=== PATIENT | male | born 1950 | race Caucasian/White ===

== ENCOUNTER → 2023-06-17 | Outpatient (CLI) | payer MEDICARE, OTHER ==
--- NOTE | 2023-06-17 09:17 | MR ---
EXAMINATION TYPE: MR Prostate wo/w con DATE OF EXAM: 06/17/2023 8:24 AM COMPARISON: None. CLINICAL INDICATION:Male, 72 years old with history of R97.20 elevated psa; Elevated PSA. TECHNIQUE: Multi-planar, multi-sequence imaging of the pelvis is performed prior to and following the uncomplicated administration of bolus intravenous gadolinium. CONTRAST: 8 Gadavist Interpretive Criteria: PI-RADS v2.1 SERUM PSA: 8.17 on 04/28/2023. 6.86 on 10/15/2022. SURGICAL PATHOLOGY: No data available. FINDINGS: Prostatic dimensions: 5.2 x 4.7 x 3.8 cm. "Bullet" Volume:60.78 (PSA density=0.13 ng/mL/mL) CENTRAL GLAND (Central and Transition Zones/CZ+TZ): Right central mid gland 11 x6 mm focus of high DWI/low ADC low T2 signal. On the This area may cross midline into the left central gland mid gland (PI-RADS 2) PERIPHERAL ZONE (PZ): Right lateral mid gland high DWI/low ADC/low T2 signal lesion measuring 15 x 11 mm along the capsule of the peripheral zone. . (PI-RADS 5) SEMINAL VESICLES (SV): Symmetric and unremarkable. PERIPROSTATIC TISSUES: Unremarkable. LYMPH NODES: No enlarged pelvic lymph node. REMAINING PELVIS: Bladder wall is within normal limits given distention. No abnormal free or organized intrapelvic fluid collection. No pathologic bowel dilation or mural thickening. Bilateral fat containing inguinal hernias. OSSEOUS STRUCTURES: No suspicious osseous abnormality. IMPRESSION: 1. PI-RADS 5 lesion along the right lateral peripheral zone of the mid gland measuring 15 x 11 mm. (PI-RADS 5) 2. PI-RADS 4 lesion along the right central mid gland measuring up to 11 x 9 mm (PI-RADS 4) 3. Moderate BPH, estimated gland volume 60.78 mL. 4. No suspicious osseous lesion. No lymphadenopathy. No evidence of prostate adenocarcinoma involvin g the periprostatic tissues.
== END | disposition home or self-care (01) ==
LOC: RADMRIMAIN 07:18
PROVIDERS: ATTEND Urology
DX: N40.0 Benign prostatic hyperplasia without lower urinary tract symptoms (principal); N42.89 Other specified disorders of prostate; R97.20 Elevated prostate specific antigen [PSA]
CPT/HCPCS: 72197; A9585

== ENCOUNTER → 2023-07-09 | Outpatient (CLI) | payer MEDICARE ==
[2023-07-09 15:15] LABS: BUN/Creat Ratio 19.56 Ratio (12.00-20.00); Blood Urea Nitrogen 17.6 mg/dL (9.0-27.0); Carbon Dioxide 23.8 mmol/L (21.6-31.8); Chloride 104 mmol/L (96-109); Glucose 92 mg/dL (70-110); Potassium 4.6 mmol/L (3.5-5.5); Sodium 140 mmol/L (135-145)
[2023-07-09 15:35] LABS: Basophils # (A) 0.08 X 10*3/uL (0.00-0.10); Basophils % (A) 1.1 %; Eosinophils # (A) 0.69 X 10*3/uL (0.04-0.35); Eosinophils % (A) 9.6 %; HCT 47.6 % (39.6-50.0); HGB 15.5 g/dL (13.0-17.0); Lymphocytes # (A) 1.45 X 10*3/uL (0.90-5.00); Lymphocytes % (A) 20.2 %; MCH 29.9 pg (27.0-32.0); MCHC 32.6 g/dL (32.0-37.0); MCV 91.9 FL (80.0-97.0); Mean Platelet Volume 10.5 FL (9.5-12.2); Monocytes # (A) 0.81 X 10*3/uL (0.20-1.00); Monocytes % (A) 11.3 %; NRBC Per 100 WBC 0 X 10*3/uL (0.00-0.01); Neutrophils # (A) 4.11 X 10*3/uL (1.80-7.70); Neutrophils % (A) 57.4 %; Platelet Count 201 X 10*3/uL (140-440); RBC 5.18 X 10*6/uL (4.40-5.60); RDW 12.7 % (11.5-14.5); WBC 7.17 X 10*3/uL (4.50-10.00)
== END | disposition home or self-care (01) ==
LOC: LABPAT 09:22
PROVIDERS: ATTEND Urology
DX: Z01.812 Encounter for preprocedural laboratory examination (principal); C61 Malignant neoplasm of prostate
CPT/HCPCS: 36415; 80048; 85025

== ENCOUNTER 2023-07-17 10:08 | Day surgery (SDC) | payer MEDICARE, OTHER ==
[2023-07-10 12:38] VITALS: BMI 27.3
--- NOTE | 2023-07-14 04:03 | P.GSHP ---
History of Present Illness H&P Date: 07/14/23 Chief Complaint: Prostate cancer The patient is a 72-year-old white male diagnosed with adenocarcinoma of the prostate in May 2022. His PSA level at that time was 6.71, and biopsies showed [place] 6 adenocarcinoma. He has a right-sided prostate nodule which is unchanged. Recent MRI shows a PI-RADS 5 lesion within the right lateral peripheral zone and a PI-RADS 4 lesion in the right central mid gland. - Cardiovascular Cardiovascular: Reports high blood pressure - Genitourinary (Male) Genitourinary: Reports nocturia Past Medical History Past Medical History: Coronary Artery Disease (CAD), Cancer, Hyperlipidemia, Hypertension Additional Past Medical History / Comment(s): hx gi bleed due to enlarged "vessels in large intestine" caused by motrin., aneurysm behind right knee., elevated PSA., prostate cancer History of Any Multi-Drug Resistant Organisms: None Reported Past Surgical History: Heart Catheterization With Stent Additional Past Surgical History / Comment(s): total left knee , reconstruction left shoulder, "double abd hernia", heart cath with 2 stents (07/30/2014) Past Anesthesia/Blood Transfusion Reactions: No Reported Reaction Date of Last Stent Placement:: 07/30/2014 Past Psychological History: No Psychological Hx Reported Smoking Status: Current some day smoker Past Alcohol Use History: None Reported Additional Past Alcohol Use History / Comment(s): currently has occasional cigar, quit cigarettes 40 years ago, hx of up to 2 ppd., Past Drug Use History: None Reported - Past Family History Mother Family Medical History: No Reported History Medications and Allergies Home Medications Medication Instructions Recorded Confirmed Type Antibiotic (Unknown Name) 2 tab PO DIRECTED 07/10/23 History Ascorbic Acid [Vitamin C] 1,000 mg PO DAILY 07/10/23 07/10/23 History Aspirin [Adult Low Dose Aspirin EC] 81 mg PO DAILY 07/10/23 07/10/23 History Evolocumab [Repatha Syringe] 140 mg SQ Q14D 07/10/23 07/10/23 History Metoprolol Succinate [Toprol XL] 50 mg PO HS 07/10/23 07/10/23 History Mv-Min/Folic/K1/Lycopen/Lutein 1 each PO DAILY 07/10/23 07/10/23 History [Centrum Silver Men Tablet] Omeprazole [PriLOSEC] 20 mg PO AC-BRKFST 07/10/23 07/10/23 History Vitamin B Complex 1 each PO DAILY 07/10/23 07/10/23 History lisinopriL [Zestril] 10 mg PO DAILY 07/10/23 07/10/23 History Allergies Allergy/AdvReac Type Severity Reaction Status Date / Time Sulfa (Sulfonamide Allergy Unknown Unknown Verified 07/10/23 12:13 Antibiotics) Childhood clopidogrel [From Plavix] AdvReac Severe Rash/Hives Verified 07/10/23 12:13 [id number] Reductase AdvReac Severe Rash/Hives Verified 07/10/23 12:13 Inhibitor ibuprofen [From Motrin] AdvReac Unknown caused Verified 07/10/23 12:18 enlarged vessels large intestine with bleeding Surgical - Exam - General well developed, well nourished, no distress - Respiratory normal respiratory effort - Abdomen Abdomen: soft, non tender, no guarding, no rigid, no rebound - Genitourinary normal penis with no external lesions, testicles non-tender - Rectum Rectum: normal sphincter tone, no masses, other (Right-sided prostate nodule) - Psychiatric oriented to time, oriented to person, oriented to place, speech is normal, memory intact Assessment and Plan (1) Malignant neoplasm of prostate Status: Acute Code(s): C61 - MALIGNANT NEOPLASM OF PROSTATE SNOMED Code(s): 557635010 Plan: The patient will undergo MRI-Ultrasound fusion transrectal biopsies of the prostate. The procedure has been reviewed in detail with the patient. He has been made aware of potential risks, which include anesthesia, bleeding, and infection. He is also aware that a negative biopsy does not completely rule out prostate cancer.
[~2023-07-17 10:08] MED LIST: DEXAMETHASONE SOD PHOSPHATE 4 MG/ML 1 ML VIAL IV ONE; GENTAMICIN 40 MG/ML 2 ML VIAL IM PRN; HYDROmorphone 0.5 MG/0.5 ML SYRINGE IVP PRN; LACTATED RINGERS 1,000 ML IV SCH; MIDAZOLAM 2 MG/2 ML VIAL IV PRN; ONDANSETRON 4 MG/2 ML VIAL IVP ONE
[2023-07-17 10:53] VITALS: TEMP 98.2
[2023-07-17] MEDS ORDERED: PROPOFOL 10 MG/ML 20 ML VIAL IV ONE (13:18)
[2023-07-17] MEDS ORDERED: fentaNYL (PF) 50 MCG/ML 2 ML AMP ONE (13:18)
--- NOTE | 2023-07-17 13:42 | P.OP ---
Date of Procedure: 07/17/23 Preoperative Diagnosis: Adenocarcinoma of the prostate Postoperative Diagnosis: Same Procedure(s) Performed: MRI ultrasound-guided fusion biopsies of the prostate Anesthesia: MAC Surgeon: Isidro Martinez Estimated Blood Loss (ml): 5 IV fluids (ml): 200 Indications for Procedure: The patient is a 72-year-old white male diagnosed with adenocarcinoma of the prostate in May 2022. His PSA level at that time was 6.71, and biopsies showed [place] 6 adenocarcinoma. He has a right-sided prostate nodule which is unchanged. Recent MRI shows a PI-RADS 5 lesion within the right lateral peripheral zone and a PI-RADS 4 lesion in the right central mid gland. Operative Findings: Biopsies sent from right peripheral zone target lesion as well as template biopsies. Description of Procedure: The patient was taken to the operating room and placed in the left lateral decubitus position. TOMMY revealed the prostate to be mildly enlarged but smooth. The [employer] transrectal ultrasound probe was placed intrarectally. It was then placed within the stand of the [employer] MRI/TRUS Fusion for Prostate Biopsy system. The prostate was imaged in both the axial and sagittal planes, revealing a prostate volume of 39 mL. Using the Biopty gun, 3 biopsies were obtained from the target lesion within the right mid peripheral zone. The remaining 12 biopsies of the peripheral zone were obtained utilizing a standard template. Once the procedure was completed, the ultrasound probe was removed. The patient tolerated the procedure well was taken to the recovery room stable condition.
[2023-07-17 13:52] VITALS: PULSE 84; RESP 16
[2023-07-17 14:18] VITALS: BP 129/82
== END 2023-07-17 14:27 | disposition home or self-care (01) ==
LOC: OR 10:08
PROVIDERS: ATTEND Urology
DX: C61 Malignant neoplasm of prostate (principal); I25.10 Atherosclerotic heart disease of native coronary artery without angina pectoris; E78.5 Hyperlipidemia, unspecified; I10 Essential (primary) hypertension; K92.2 Gastrointestinal hemorrhage, unspecified; F17.210 Nicotine dependence, cigarettes, uncomplicated; Z79.82 Long term (current) use of aspirin; Z79.2 Long term (current) use of antibiotics; Z79.899 Other long term (current) drug therapy; Z88.2 Allergy status to sulfonamides; Z88.1 Allergy status to other antibiotic agents; Z88.6 Allergy status to analgesic agent; Z88.8 Allergy status to other drugs, medicaments and biological substances; Z85.46 Personal history of malignant neoplasm of prostate; Z96.652 Presence of left artificial knee joint
CPT/HCPCS: 55700; 76942; 88305; J1580; J1100; J2405; J3010; J2704

== ENCOUNTER → 2023-08-22 | Outpatient (CLI) | payer MEDICARE, OTHER ==
[2023-08-22 16:00] LABS: Basophils # (A) 0.09 X 10*3/uL (0.00-0.10); Eosinophils # (A) 0.54 X 10*3/uL (0.04-0.35); Eosinophils % (A) 5.9 %; HCT 43.2 % (39.6-50.0); HGB 14.3 g/dL (13.0-17.0); Lymphocytes # (A) 1.82 X 10*3/uL (0.90-5.00); MCH 29.5 pg (27.0-32.0); MCHC 33.1 g/dL (32.0-37.0); MCV 89.1 FL (80.0-97.0); Mean Platelet Volume 10.5 FL (9.5-12.2); Monocytes # (A) 0.79 X 10*3/uL (0.20-1.00); Monocytes % (A) 8.7 %; NRBC Per 100 WBC 0 X 10*3/uL (0.00-0.01); Neutrophils % (A) 63.7 %; Platelet Count 195 X 10*3/uL (140-440); RBC 4.85 X 10*6/uL (4.40-5.60); RDW 12.9 % (11.5-14.5)
[2023-08-22 18:26] LABS: BUN/Creat Ratio 19.11 Ratio (12.00-20.00); Blood Urea Nitrogen 17.2 mg/dL (9.0-27.0); Calcium 10.4 mg/dL (8.7-10.3); Carbon Dioxide 23.2 mmol/L (21.6-31.8); Chloride 104 mmol/L (96-109); Glucose 109 mg/dL (70-110); Potassium 4.4 mmol/L (3.5-5.5); Sodium 139 mmol/L (135-145)
[2023-08-22 18:31] LABS: Appearance,Urine Clear (Clear); Bilirubin,Urine Negative (Negative); Blood,Urine Negative (Negative); Color,Urine Yellow (Yellow); Ketones,Urine Negative (Negative); Nitrite,Urine Negative (Negative); Specific Gravity,Urine 1.011 (1.001-1.030); Urobilinogen,Urine 0.2 E.U./DL
[2023-08-22 18:38] LABS: Bacteria,Urine None Seen (None Seen)
== END | disposition home or self-care (01) ==
LOC: LABPAT 13:13
PROVIDERS: ATTEND Urology
DX: Z01.818 Encounter for other preprocedural examination (principal); C61 Malignant neoplasm of prostate
CPT/HCPCS: 36415; 80048; 81001; 85025; 86850; 86900; 86901; 87086; 93005

== ENCOUNTER 2023-08-28 09:12 | Day surgery (SDC) | payer MEDICARE, OTHER ==
[2023-08-25 11:27] VITALS: BMI 27.6
[2023-08-28] MEDS: LACTATED RINGERS 1,000 ML IV SCH (09:39)
[2023-08-28] MEDS: DEXAMETHASONE SOD PHOSPHATE 4 MG/ML 1 ML VIAL IV ONE (10:03)
[2023-08-28] MEDS: ONDANSETRON 4 MG/2 ML VIAL IVP ONE (10:03)
[2023-08-28] MEDS: MIDAZOLAM 2 MG/2 ML VIAL IVP ONE (10:18)
[2023-08-28] MEDS: HEPARIN SODIUM,PORCINE 5,000 UNIT/ML 1 ML VIAL SQ PRN (10:32)
--- NOTE | 2023-08-28 10:35 | P.ANPRN ---
Procedure Note - Anesthesia - Nerve Block Performed Bilateral Erector Spinae Single Time Out Performed: Yes Date of Procedure: 08/28/23 Procedure Start Time: 10:18 Procedure Stop Time: : Location of Patient: PreOp Indication: Acute Post-Operative Pain, Analgesia, Requested by Surgeon Sedation Type: Sedate with meaningful contact maintained Preparation: Sterile Prep Position: Prone Catheter: None Needle Types: Pajunk Needle Gauge: 21 Ultrasound used to visualize needle placement: Yes Ultrasound used to observe medication spread: Yes Injectate: 0.5% Ropivacaine (see comment for volume) (Ropiv 20ml+4mg decadron-- On each side) Narrative: Block done at L1 level bilaterally Blood Aspirated: No Pain Paresthesia on Injection Noted: No Resistance on Injection: Normal Image Stored and Saved: Yes Events: Uneventful and Well Tolerated
--- NOTE | 2023-08-28 11:06 | P.HPIHPCON ---
History of Present Illness H&P Date: 08/28/23 Chief Complaint: Prostate cancer This is a 73-year-old male with history of [place] 7(4+3)prostate cancer. Option of a robotic radical prostatectomy, versus radiation therapy was discussed with him in details. He agreed to proceed with a robotic radical prostatectomy, aware the risk which includes but limited to bleeding, infection, urinary incontinence, erectile dysfunction. Discussed also risk of cancer recurrence, and potential of needing additional treatments. Risk of injury to nearby organs was also discussed. Discussed with him given his previous ventral hernia repair potential of encountering adhesions which increases risk of complications. He understood all the risk and agreed to proceed Consent for Procedure: I have explained the operation/procedure to the patient, including the risks, benefits, side effects, alternative therapies (including not receiving the proposed treatment or service), the likelihood of the patient achieving his/her goals, and potential recuperation problems for the procedure/sedation/analgesia, as well as any blood products, if indicated. I also explained to the patient the risks, benefits and side effects of the alternatives, as well as the risks related to not receiving the proposed procedure, care, treatment, or services. Past Medical History Past Medical History: Coronary Artery Disease (CAD), Cancer, GI Bleed, Hearing Disorder / Deafness, Hyperlipidemia, Hypertension Additional Past Medical History / Comment(s): Hx GI bleed due to enlarged "vessels in large intestine" caused by Motrin. Aneurysm behind right knee. Current prostate cancer. Mild hearing loss. History of Any Multi-Drug Resistant Organisms: None Reported Past Surgical History: Heart Catheterization With Stent, Hernia Repair, Joint Replacement, Orthopedic Surgery Additional Past Surgical History / Comment(s): Total left knee replacement, reconstruction left shoulder, "double abdominal hernia", heart cath with 2 stents (07/30/2014), prostate biopsy. Past Anesthesia/Blood Transfusion Reactions: No Reported Reaction Date of Last Stent Placement:: 07/30/2014 Past Psychological History: No Psychological Hx Reported Smoking Status: Current some day smoker Past Alcohol Use History: None Reported Additional Past Alcohol Use History / Comment(s): Currently has occasional cigar, quit cigarettes 40 years ago, hx of up to 2 ppd. Past Drug Use History: None Reported - Past Family History Mother Family Medical History: No Reported History Medications and Allergies Home Medications Medication Instructions Recorded Confirmed Type Ascorbic Acid [Vitamin C] 1,000 mg PO DAILY 07/10/23 08/28/23 History Aspirin [Adult Low Dose Aspirin EC] 81 mg PO HS 07/10/23 08/28/23 History Evolocumab [Repatha Syringe] 140 mg SQ Q14D 07/10/23 08/28/23 History Metoprolol Succinate [Toprol XL] 50 mg PO HS 07/10/23 08/28/23 History Mv-Min/Folic/K1/Lycopen/Lutein 1 each PO DAILY 07/10/23 08/28/23 History [Centrum Silver Men Tablet] Omeprazole [PriLOSEC] 20 mg PO AC-BRKFST 07/10/23 08/28/23 History Vitamin B Complex 1 each PO DAILY 07/10/23 08/28/23 History lisinopriL [Zestril] 10 mg PO QAM 07/10/23 08/28/23 History Allergies Allergy/AdvReac Type Severity Reaction Status Date / Time Sulfa (Sulfonamide Allergy Unknown Unknown Verified 08/28/23 09:34 Antibiotics) Childhood clopidogrel [From Plavix] AdvReac Severe Rash/Hives Verified 08/28/23 09:34 [id number]-VKT-HpQ Reductase AdvReac Severe Rash/Hives Verified 08/28/23 09:34 Inhibitor ibuprofen [From Motrin] AdvReac Unknown caused Verified 08/28/23 09:34 enlarged vessels large intestine with bleeding Surgical - Exam Vital Signs Temp Pulse Resp BP Pulse Ox 97.2 F L 77 18 141/74 99 08/28/23 09:45 08/28/23 09:45 08/28/23 09:45 08/28/23 09:45 08/28/23 09:45 - General no distress, no pain - Eyes normal ocular movement, no pale - ENT normal nares, normal mucosa - Respiratory normal expansion, normal respiratory effort - Abdomen Abdomen: soft, non tender - Psychiatric oriented to time, oriented to person, oriented to place Assessment and Plan Assessment: OR for robotic radical prostatectomy, with bilateral pelvic lymph node dissections
[2023-08-28] MEDS ORDERED: GLYCOPYRROLATE 0.2 MG/ML 2 ML VIAL ONE (11:26)
[2023-08-28] MEDS ORDERED: ROCURONIUM 10 MG/ML (5 ML VIAL) IV ONE (11:26)
[2023-08-28] MEDS ORDERED: PHENYLEPHRINE 10 MG/ML VIAL ONE (11:26)
[2023-08-28] MEDS ORDERED: KETAMINE HCL IN 0.9 % NACL 50 MG/5 ML SYRINGE ONE (11:26)
[2023-08-28] MEDS ORDERED: MIDAZOLAM 2 MG/2 ML VIAL ONE (11:26)
[2023-08-28] MEDS ORDERED: fentaNYL (PF) 50 MCG/ML 2 ML AMP ONE (11:26)
[2023-08-28] MEDS ORDERED: LIDOCAINE 1% INJ 10MG/ML (20 ML MDV) ONE (11:26)
[2023-08-28] MEDS ORDERED: ROPIVACAINE 5 MG/ML 30 ML VIAL ONE (11:26)
[2023-08-28] MEDS ORDERED: DEXAMETHASONE SOD PHOSPHATE 4 MG/ML 1 ML VIAL ONE (11:26)
[2023-08-28] MEDS ORDERED: PROPOFOL 10 MG/ML 20 ML VIAL IV ONE (11:26)
[2023-08-28] MEDS ORDERED: NEOSTIGMINE 1 MG/ML 10 ML VIAL ONE (11:26)
[2023-08-28] MEDS ORDERED: HYDROmorphone (PF) 1 MG/ML ONE (11:26)
[2023-08-28] MEDS ORDERED: SUCCINYLCHOLINE CHLORIDE 200 MG/10 ML VIAL IV ONE (11:26)
[2023-08-28] MEDS: LACTATED RINGERS 1,000 ML IV ONE ×3 (11:30→14:22)
[2023-08-28] MEDS: BUPIVACAINE (PF) 0.25% 30 ML VIAL SQ ONE (11:34)
[2023-08-28] MEDS ORDERED: HYDROmorphone 1 MG/ML 1 ML SYRINGE IVP PRN (11:38)
[2023-08-28] MEDS ORDERED: ONDANSETRON 4 MG/2 ML VIAL IVP PRN (11:38)
--- NOTE | 2023-08-28 15:14 | P.OP ---
Date of Procedure: 08/28/23 Preoperative Diagnosis: Prostate cancer Postoperative Diagnosis: Same Procedure(s) Performed: Robotic radical prostatectomy with bilateral pelvic lymph node dissection Implants: None Anesthesia: NATHANIELA Surgeon: Hector Liang Estimated Blood Loss (ml): 100 Pathology: other (Prostate, bilateral seminal vesicle, bilateral pelvic lymph nodes) Condition: stable Disposition: PACU Indications for Procedure: This is a 73-year-old male with history of [place] 7(4+3)prostate cancer. Option of a robotic radical prostatectomy, versus radiation therapy was discussed with him in details. He agreed to proceed with a robotic radical prostatectomy, aware the risk which includes but limited to bleeding, infection, urinary incontinence, erectile dysfunction. Discussed also risk of cancer recurrence, and potential of needing additional treatments. Risk of injury to nearby organs was also discussed. Discussed with him given his previous ventral hernia repair potential of encountering adhesions which increases risk of complications. He understood all the risk and agreed to proceed Description of Procedure: After preoperative antibiotics were started, the patient was taken to the operating room. Anesthesia was induced and the patient was placed in a supine position, with adequate padding of the pressure points, shoulders, back, legs and arms. He was then prepped and draped in the standard fashion. A critical pause was performed using two patient identifiers. A 16F cordova catheter was placed to gravity drainage. A pneumo-peritoneum was created with placement of a Veress needle to 20 mm Hg without complication the Veress needle was placed in the left upper quadrant given the patient's previous midline incision. After obtaining pneumoperitoneum, 8 mm robotic trocar was placed in the right quadrant away from the midline incision at this point laparoscopy was performed which showed no adhesions along the midline incision , and a 8 Fr trocar was placed above the umbillicus. Under direct vision a 8mm robotic ports was placed in left and lateral slightly below the camera port. The left iliac fossa 8mm port was placed. The right hotel administrative assistant right iliac fossa 12mm port and right paramedian 5mm portwere placed. After the patient was placed in the trendelenberg position, the robot was then docked to the 8mm robotic ports and then each robotic arm and tower was checked in relation to the patient's legs and hands to avoid inadvertent compression. The peritoneal cavity was inspected. An inverted U-shaped incision began laterally to the left medial umbilical ligament and extended high across the midline to the right umbilical ligament. The limbs of the "U" extended to the level of the vasa on both sides. We next developed the preperitoneal space and the space of Retzius. Cautery was used to dissected the bladder away from the prostate. After the anterior bladder neck was incised and the bladder entered the the posterior bladder neck was exposed and the ureteral orifces identified. The posterior barry dder neck was then incised and dissected away from the prostate. The vas and the seminal vesicles were now exposed and dissected to their insertions into the prostate and were not spared. The posterior layer of the Denonvillier's fascia was incised to enter luis alberto the plane between prostate and perirectal fat. Each lateral pedicle was controlled with clips and cautery for hemostasis. No nerve preservation was performed on the right, complete nerve preservation was performed on the left. The puboprostatic ligament was incised where it inserted into the apex of the prostate and a plane between urethra and dorsal venous complex developed to expose the anterior urethral surface. The anterior wall of the urethra was transected with the cut setting a few millimeters distal to the apex of the prostate. The dorsal vein was ligated using 3-0 V lock bilateral obturator and external iliac lymph node packets were carefully dissected after careful visualization of the hypogastric artery and obturator nerve. There was careful attention paid to hemostasis with judicious use of cautery. The urethrovesical anastomosis was performed . the posterior denovillers was reapproximated using 3-0 V lock. A 6 and 6 inch 3-0 V-Lock suture was used to anastomose the urethra and bladder, starting at the 6:00 posterior position. Mucosa was secured in every stitch, to ensure a mucosa to mucosa anastomosis. The stitch was regularly cinched and the anastomosis tightened. Care was taken to not violate the ureteral orifices. The Cordova catheter was advanced, the bladder filled, and the anastomosis was tested, as described above. Anastomsis was watertight at 200 mL The periumbilical fascia was closed with 1-0-PDS suture in running fashion. All ports were closed with a subcuticular 4-0 monocryl and Dermabond. Sponge, instrument, and needle counts were correct at the end of the case x2. All specimens including prostate and lymph nodes were sent to pathology for diagnosis and will be available in a week. The patient tolerated the surgery well and without complication. He awoke without difficulty and was taken to the recovery room in stable condition
[2023-08-28] MEDS: HYDROmorphone 0.5 MG/0.5 ML SYRINGE IVP PRN (17:04)
[2023-08-28] MEDS: HYDROcodone/APAP 5-325MG 1 EACH TAB PO PRN (20:57)
[2023-08-28] MEDS: METOPROLOL SUCCINATE (ER) 50 MG TAB.ER.24H PO SCH (20:57)
[2023-08-28] MEDS: D5-0.45% NACL WITH KCL 20MEQ/L 1,000 ML IV SCH (21:00)
[2023-08-28] MEDS: HEPARIN SODIUM,PORCINE 5,000 UNIT/ML 1 ML VIAL SQ SCH (23:14)
[2023-08-28] MEDS: methocarbamoL 750 MG TAB PO PRN (23:35)
[2023-08-29] MEDS: PANTOPRAZOLE 40 MG TABLET PO SCH (06:41)
[2023-08-29] MEDS: lisinopriL 10 MG TAB PO SCH (08:19)
[2023-08-29 08:21] VITALS: BP 135/74; PULSE 72; RESP 19; TEMP 98.9
--- NOTE | 2023-08-29 09:55 | P.DS ---
Providers Attending physician: Hector Liang MD Primary care physician: Tayla Mas MD Hospital Course: This is a 73-year-old male with history of [place] 7 prostate cancer. Underwent a robotic radical prostatectomy on August 27. Please see op note dated August 27 for surgery details. Patient was admitted to the hospital postoperatively. He was discharged home with a Bautista catheter on postop day #1. At time of discharge he was tolerating a diet, ambulating, and pain was controlled Plan - Discharge Summary Discharge Rx Participant: No New Discharge Prescriptions: New Cephalexin [Keflex] 250 mg PO Q12HR #20 cap traMADol HCl [Ultram] 50 mg PO Q4HR PRN 3 Days #18 tab PRN Reason: Pain No Action Evolocumab [Repatha Syringe] 140 mg SQ Q14D Mv-Min/Folic/K1/Lycopen/Lutein [Centrum Silver Men Tablet] 1 each PO DAILY Ascorbic Acid [Vitamin C] 1,000 mg PO DAILY Metoprolol Succinate [Toprol XL] 50 mg PO HS lisinopriL [Zestril] 10 mg PO QAM Aspirin [Adult Low Dose Aspirin EC] 81 mg PO HS Omeprazole [PriLOSEC] 20 mg PO AC-BRKFST Vitamin B Complex 1 each PO DAILY Discharge Medication List Ascorbic Acid [Vitamin C] 1,000 mg PO DAILY 07/10/23 [History] Aspirin [Adult Low Dose Aspirin EC] 81 mg PO HS 07/10/23 [History] Evolocumab [Repatha Syringe] 140 mg SQ Q14D 07/10/23 [History] Metoprolol Succinate [Toprol XL] 50 mg PO HS 07/10/23 [History] Mv-Min/Folic/K1/Lycopen/Lutein [Centrum Silver Men Tablet] 1 each PO DAILY 07/10/23 [History] Omeprazole [PriLOSEC] 20 mg PO AC-BRKFST 07/10/23 [History] Vitamin B Complex 1 each PO DAILY 07/10/23 [History] lisinopriL [Zestril] 10 mg PO QAM 07/10/23 [History] Cephalexin [Keflex] 250 mg PO Q12HR #20 cap 08/29/23 [Rx] traMADol HCl [Ultram] 50 mg PO Q4HR PRN 3 Days #18 tab 08/29/23 [Rx] Activity/Diet/Wound Care/Special Instructions: Increase fluid intake No heavy lifting or straining It is normal to have blood in the urine
== END 2023-08-29 13:25 ==
LOC: OR 09:12 → 4SSUR 17:34 → OR 08-29 13:25
PROVIDERS: ATTEND Urology
DX: C61 Malignant neoplasm of prostate (principal); I25.10 Atherosclerotic heart disease of native coronary artery without angina pectoris; I10 Essential (primary) hypertension; E78.5 Hyperlipidemia, unspecified; K21.9 Gastro-esophageal reflux disease without esophagitis; F17.210 Nicotine dependence, cigarettes, uncomplicated; Z79.82 Long term (current) use of aspirin; Z88.2 Allergy status to sulfonamides; Z88.8 Allergy status to other drugs, medicaments and biological substances; Z88.6 Allergy status to analgesic agent; Z79.899 Other long term (current) drug therapy
CPT/HCPCS: 38571; 55866; S2900; 64999; 88307; 88309

== ENCOUNTER → 2023-10-14 | Outpatient (CLI) | payer MEDICARE | END | disposition home or self-care (01) | LOC: LABWHC1 10:50 | PROVIDERS: ATTEND Urology | DX: C61 Malignant neoplasm of prostate (principal) | CPT/HCPCS: 36415; 84153 ==

== ENCOUNTER → 2024-06-03 | Outpatient (CLI) | payer MEDICARE | END | disposition home or self-care (01) | LOC: LABWHC1 09:43 | PROVIDERS: ATTEND Urology | DX: C61 Malignant neoplasm of prostate (principal) | CPT/HCPCS: 36415; 84153 ==

== ENCOUNTER → 2024-12-23 | Outpatient (CLI) | payer MEDICARE | END | disposition home or self-care (01) | LOC: LABWHC1 09:11 | PROVIDERS: ATTEND Urology | DX: C61 Malignant neoplasm of prostate (principal) | CPT/HCPCS: 36415; 84153 ==